=== PATIENT | female | born 1955 | race Caucasian/White ===

== ENCOUNTER 2017-09-18 07:21 | Observation (INO) | payer OTHER ==
[2017-09-18] MEDS ORDERED: NS 1,000 ML IV ONE (07:22)
--- NOTE | 2017-09-18 07:42 | CPEKG ---
Heart Rate: 71 RR Interval: 845 P-R Interval: 180 QRSD Interval: 90 QT Interval: 380 QTC Interval: 413 P Chancellor: 74 QRS Chancellor: -42 T Wave Chancellor: 59 EKG Severity - ABNORMAL ECG - EKG Impression: SINUS RHYTHM EKG Impression: LEFT ANTERIOR FASCICULAR BLOCK Electronically Signed By: Lázaro Maldonado 18-Sep-2017 08:03:57
[2017-09-18 08:03] LABS: PLATELET COUNT 211 10^3/uL (150-400)
[2017-09-18 08:13] LABS: INR 0.92 (0.83-1.16); PROTIME(PATIENT) 12.6 SEC (12.0-15.0)
--- NOTE | 2017-09-18 08:38 | PDGENHP ---
History & Physical Chief Complaint: palps History of Present Illness: symptomatic svt Relevant Physical Exam: [id number] cta ao3 Cardiorespiratory Assessment: svt for ablation
[2017-09-18] MEDS ORDERED: MIDAZOLAM 2 MG/2 ML VIAL IVP ONE (08:42)
--- NOTE | 2017-09-18 08:44 | PDANEPAE ---
ANE Past Medical History - Pulmonary History Hx Sleep Apnea: No ANE Review of Systems Review of Systems: - Exercise capacity Exercise capacity: >=4 METS ANE Patient History - Allergies Allergies/Adverse Reactions: No Known Allergies Allergy (Unverified 09/12/17 09:29) - Home Medications Home Medications: Acetaminophen [Tylenol 325mg (*)] 325 mg PO DAILY PRN 09/12/17 [Last Taken Unknown] Citalopram Hydrobromide [Celexa] 40 mg PO HS 09/12/17 [Last Taken 09/17/17] Diltiazem HCl [Cartia XT 180mg] 180 mg PO DAILY 09/12/17 [Last Taken 09/11/17] Losartan Potassium [Cozaar 50 mg (*)] 100 mg PO HS 09/12/17 [Last Taken 09/17/17 ] Mirtazapine [Remeron] 15 mg PO HS 09/12/17 [Last Taken 09/17/17] buPROPion XL [Wellbutrin Xl] 150 mg PO DAILY 09/12/17 [Last Taken 09/17/17] - NPO status NPO Status: no food or drink >8 hours - Anes Hx Anes Hx: no prior problems - Smoking Hx Smoking Status: Former smoker ANE Labs/Vital Signs - Labs Result Diagrams: 09/18/17 07:53 09/18/17 07:53 - Vital Signs Height: 168 cm Weight: 79.4 kg ANE Physical Exam - Airway Mallampati Score: Class 2 Mouth exam: normal dental/mouth exam - Pulmonary Pulmonary: no respiratory distress, no rales or rhonchi, clear to auscultation - Cardiovascular Cardiovascular: regular rate and rhythym, no murmur, rub, or gallop - ASA Status ASA Status: III ANE Anesthesia Plan Anesthesia Plan: GA w LMA
[2017-09-18] MEDS ORDERED: MIDAZOLAM 2 MG/2 ML VIAL ONE (08:48)
[2017-09-18] MEDS ORDERED: fentaNYL 250 MCG/5 ML INJ ONE (08:57)
[2017-09-18] MEDS ORDERED: LIDOCAINE 2% JELLY 5 ML TUBE ONE (08:58)
[2017-09-18] MEDS ORDERED: DEXAMETHASONE 4 MG/ML VIAL ONE (08:58)
[2017-09-18] MEDS ORDERED: PROPOFOL 200 MG/20 ML VIAL ONE (08:58)
[2017-09-18] MEDS ORDERED: ONDANSETRON 4 MG/2 ML VIAL ONE (08:58)
[2017-09-18] MEDS ORDERED: HEPARIN 10,000 UNIT/10 ML MDV (1,000 UNIT/ML) ONE (09:08)
[2017-09-18] MEDS ORDERED: ISOPROTERENOL HCL/D5W 0.2 MG/50 ML BAG IV ONE (09:09)
[2017-09-18] MEDS ORDERED: PHENYLEPHRINE HCL 100 MCG/ML SYR ONE (09:39)
[2017-09-18] MEDS ORDERED: ROCURONIUM 50 MG/5 ML VIAL ONE (09:47)
[2017-09-18] MEDS ORDERED: SUGAMMADEX SODIUM 200 MG/2 ML VIAL IVP ONE (10:19)
[2017-09-18] MEDS ORDERED: BUPIVACAINE 0.5% 30 ML SDV ONE (10:22)
[2017-09-18] MEDS ORDERED: NALOXONE HCL 0.4 MG/ML INJ IVP PRN (10:28)
[2017-09-18] MEDS ORDERED: ONDANSETRON 4 MG/2 ML VIAL IVP PRN (10:28)
[2017-09-18] MEDS ORDERED: PROMETHAZINE HCL 25 MG/ML INJ IVP PRN (10:28)
[2017-09-18] MEDS ORDERED: fentaNYL 100 MCG/2 ML INJ IVP PRN (10:28)
[2017-09-18] MEDS ORDERED: HYDROCODONE/APAP 5/325 TAB PO PRN (10:28)
[2017-09-18] MEDS ORDERED: NS 500 ML IV PRN (10:28)
[2017-09-18] MEDS ORDERED: LABETALOL HCL 5 MG/ML 20 ML MDV IVP PRN (10:28)
--- NOTE | 2017-09-18 10:34 | EPPROC ---
Electrophysiology Procedure Note: ELECTROPHYSIOLOGIC STUDY AND CATHETER MEDIATED ABLATION OF SLOW/FAST AV ALEJANDRO REENTRY TACHYCARDIA PROCEDURES PERFORMED: 77305-49 EP evaluation with RA/RV/LA pace/record, with arrhythmia induction 36755-74 EP evaluation with RA/RV pace record, insert/reposition catheter, with arrhythmia induction 93926 Intracardiac catheter ablation, SVT arrhythmogenic focus 81299 3D mapping Fluoroscopy INDICATION: Symptomatic SVT, adenosine sensitive PROCEDURE: Catheters & Anesthesia: The patient arrived in the Electrophysiology Laboratory in the fasting state. The right clavicular region, right groin, and left groin area were prepped and draped in the usual sterile manner. Anesthesiologist Dr. Safia Noriega administered general anesthesia. Appropriate non-invasive blood pressure, pulse oximetry and end-tidal CO2 monitoring was established. All catheters were placed percutaneously using the modified Seldinger technique , and advanced into position under fluoroscopic guidance. One #6 Cameroonian hexapolar non-deflectable electrode catheter was inserted into the right atrial appendage via the left femoral vein (2mm spacing; except the proximal ring which was 25cm from the tip used for unipolar recordings). One #7 Cameroonian deflectable octapolar electrode catheter was advanced to the His-bundle position via the left femoral vein (2mm spacing). One #7 Cameroonian deflectable quadrapolar catheter was advanced to the anteroseptal right ventricle via the right femoral vein. One #7 Cameroonian deflectable catheter with 10 pairs of electrodes was placed via the right femoral vein into the coronary sinus. Heparin 4000 U was given. Programmed stimulation was performed from the right atrium, right ventricle and coronary sinus (left atrium). Parahisian pacing demonstrated constant H-A interval with changing V-A intervals and stimulus-A intervals during capture and loss of capture of proximal RBB proving retrograde conduction over AV node. AVNRT was induced easily during infusion of isoproterenol 2 mcg/min. Ventricular extrastimuli delivered during tachycardia without altering antegrade His bundle activation did not advance next atrial potential, indicating that the tachycardia was not utilizing an accessory pathway for retrograde conduction. VA interval was 15 ms. Post entrainment of the tachycardia from the ventricle, there was VAHV response. Mapping of the right atrium and coronary sinus during AVNRT identified earliest atrial activation above the tendon of Kendy at a level slightly posterior to the level of the His bundle, consistent with retrograde conduction over the fast AV alejandro pathway. A #8 Cameroonian deflectable quadrapolar electrode catheter (2mm-5mm-2mm spacing) with 4 mm tip electrode and sensor for the 3D mapping Carto system was advanced to the right atrium. 3 D mapping of the inter-atrial septum and coronary sinus was performed and location of the AV node was marked. A SL2 sheath was used. RF applications were delivered to the region between the tricuspid annulus and the coronary sinus ostium, at the level of the upper edge of the coronary sinus ostium. Radiofrequency applications were also delivered along the roof of the proximal coronary sinus. Junctional rhythm occurred during all of the RF applications. Programmed stimulation was continued post ablation at baseline and during graded doses of isoproterenol upto 4mcg/min. Sustained AVNRT was not inducible. There were no echo beats. The catheters were removed. Vascular access sheaths were removed in the EP Lab after pursestring suture was applied. The patient was transferred to the cardiovascular holding area in stable condition. There were no apparent complications. Results: A. Spontaneous Intervals: Pre ablation SCL 1115 ms AH 90 ms HV 40 ms Post ablation SCL 840 ms AH 80 ms HV 40 ms B. Antegrade AV alejandro function (decremental pacing) Pre ablation FPERP 580 ms SPERP 570 ms WBB CL 560 ms Post ablation FPERP 380 ms WBB CL 370 ms C. Retrograde AV alejandro function (decremental pacing) Pre ablation FPERP 670 ms WBB CL 660 ms D. Arrhythmias: Sustained slow/fast AVNRT Cycle length 360 ms, AH interval 300 ms, MATTHEWS interval 60 ms VA interval 15 ms CONCLUSIONS 1. AV alejandro reentrant tachycardia using the slow AV alejandro pathway for antegrade conduction and the fast AV alejandro pathway for retrograde conduction. ( Slow/fast AVNRT). 2. Successful ablation of the slow AV alejandro pathway with elimination of 1:1 antegrade conduction over the slow AV alejandro pathway, all retrograde conduction over the slow AV alejandro pathway and the inducibility of AVNRT. 3. No complications. Patient Problems: Problems Problem Status Onset Supraventricular tachycardia Acute
[2017-09-18] MEDS ORDERED: ACETAMINOPHEN 325 MG TAB PO PRN (10:36)
--- NOTE | 2017-09-18 10:42 | POSTANESTH ---
Post Anesthetic Evaluation Cardiovascular Status: Normal, Stable, Similar to Pre-Op Cond Respiratory Status: Normal, Stable, Similar to Pre-op Cond. Level of Consciousness/Mental Status: Can Participate in Eval, Alert and Oriented Pain Control: Inadeq, Add Tx Required Nausea/Vomiting Control: Adequate, Prn Tx Ordered Complications Possibly Related to Anesthesia: None Noted
--- NOTE | 2017-09-18 10:43 | CPEKG ---
Heart Rate: 66 RR Interval: 909 P-R Interval: 176 QRSD Interval: 92 QT Interval: 404 QTC Interval: 424 P [place]: 69 QRS [place]: -30 T Wave [place]: 56 EKG Severity - OTHERWISE NORMAL ECG - EKG Impression: SINUS RHYTHM EKG Impression: LEFT AXIS DEVIATION Electronically Signed By: Lázaro Maldonado 18-Sep-2017 11:13:29
[2017-09-18] MEDS ORDERED: LIDOCAINE 1% 300 MG/30 ML SDV ONE (10:59)
[2017-09-18] MEDS ORDERED: LOSARTAN POTASSIUM 50 MG TAB PO SCH (21:00)
[2017-09-18] MEDS ORDERED: MIRTAZAPINE 15 MG TAB PO SCH (21:00)
[2017-09-18] MEDS ORDERED: CITALOPRAM 20 MG TAB PO SCH (21:00)
[2017-09-19 04:41] LABS: PLATELET COUNT 205 10^3/uL (150-400)
[2017-09-19 05:27] LABS: CREATINE KINASE 55 IU/L (0-156)
[2017-09-19 07:21] VITALS: BP 152/89; PULSE 68; RESP 16; TEMP 97.9; O2SAT 91
[2017-09-19] MEDS ORDERED: ASPIRIN 81 MG CHEWABLE TAB PO SCH (09:00)
[2017-09-19] MEDS ORDERED: buPROPion XL 150 MG TAB PO SCH (09:00)
--- NOTE | 2017-09-19 09:35 | CPEKG ---
Heart Rate: 65 RR Interval: 923 P-R Interval: 180 QRSD Interval: 92 QT Interval: 400 QTC Interval: 416 P [place]: 54 QRS [place]: -22 T Wave [place]: 49 EKG Severity - OTHERWISE NORMAL ECG - EKG Impression: SINUS RHYTHM EKG Impression: BORDERLINE LEFT AXIS DEVIATION Electronically Signed By: Lázaro Maldonado 19-Sep-2017 10:52:17
--- NOTE | 2017-09-19 10:00 | ECHO ---
[email or web address] [address] [address] Main: [phone] Fax: Transthoracic Echocardiogram Name: FANNY STALEY MR#: [id number] Study Date: 09/19/2017 Study Time: 07:28 AM Date of : 1955 Age: 62 year(s) Height: 167.6 cm (66 in.) Weight: 79.38 kg (175 lb.) BSA: 1.89 m2 Gender: Female Examination: Echo Indication: F/U post EP study Image Quality: Contrast: Requested by: Lázaro Maldonado BP: / Heart Rate: Rhythm: Indication: F/U post EP study Procedure Staff Tip Banding Machine Operator: Maryanne Floyd RDCS Reading Physician: Roni Ramirez Requesting Provider: Conclusions: Normal study Measurements: Chambers Valvular Assessment AV/MV Valvular Assessment TV/PV Normal Normal Normal Name Value Range Name Value Range Name Value Range Ao Nadira (MM): 3.0 cm (2.2 cm-3.7 AV Vmax: 0.84 m/s (1 m/s-1.7 cm) m/s) IVSd (2D): 0.8 cm (0.6 cm-1.1 AV maxP mmHg ( - ) cm) MV E Vmax: 0.61 m/s ( - ) LVDd (2D): 4.7 cm (3.9 cm-5.3 MV A Vmax: 0.74 m/s ( - ) cm) MV E/A: 0.82 ( - ) LVDs (2D): 3.3 cm (2.1 cm-4 cm) LVPWd (2D): 0.7 cm ( - ) LVEF (MOD4): 63 % (>=55 %) EF Range: 60-65 % Continued Measurements: Chambers Valvular Assessment AV/MV Name Value Name Value LADs: 3.0 cm MV E/E' Septal: 10.80 LADs Lon.3 cm MV E/E' Lateral: 9.40 LA Area: 14.7 cm2 Additional Vessels Name Value Patient: FANNY STALEY Study Date: 09/19/2017 Page 1 of 2 07:28 AM Ao Ascendin.4 cm Findings: Left Ventricle: Normal size left ventricle. No LV hypertrophy. Normal global systolic LV function. The ejection fraction is estimated to be 60-65 %. No regional wall motion abnormality. Right Ventricle: Normal size right ventricle. Left Atrium: The left atrium is normal in size. Right Atrium: The right atrium is normal in size. Mitral Valve: The mitral valve is normal in appearance and function. Trivial to mild mitral regurgitation. Aortic Valve: The aortic valve is normal in appearance and function. Tricuspid Valve: The tricuspid valve is normal in appearance and function. Trivial tricuspid valve regurgitation. Pulmonic Valve: Pulmonary valve not well visualized. Aorta: The aorta is normal. Pericardium: No pericardial effusion. There is pericardial fat. (No Signature Object) Patient: FANNY STALEY Study Date: 09/19/2017 Page 2 of 2 07:28 AM D:_[id number]
--- NOTE | 2017-09-19 12:00 | ASDISCHSUM ---
Discharge Information Plan Status: Medically Cleared to Leave: Discharge Date:09/19/2017 11:50 AM CM D/C Disposition: ADT D/C Disposition:Home, Routine, Self-Care Projected Discharge Date:09/19/2017 11:50 AM Transportation at D/C: Discharge Delay Reason: Follow-Up Date:09/19/2017 11:50 AM Discharge Slot: Final Diagnosis: Placement Information Patient Contact Information Contact Name:PETE Relationship: Address:[address] City:[place] Alternate Phone: State/Zip Code:[place] [address] Email: Financial Information Financial Class:HMO and PPO Plans Primary Plan Desc:[employer]/POS PPO Primary Plan Number:[id number] Secondary Plan Desc: Secondary Plan Number: Assessment Information Intervention Information
--- NOTE | 2017-09-19 19:03 | GDS ---
[f rep st] DISCHARGE SUMMARY DISCHARGE DIAGNOSES: 1. Atrioventricular laila reentrant tachycardia. 2. Hypertension. HOSPITAL COURSE: For detailed H and P, please see prior dictation. Briefly, the patient is a 62-year-old female with a history of palpitations which were present for th e past 2 years. Recently, she had palpitations. Presented to [facility] where she was found to be in SVT. She received adenosine and converted to normal sinus rhythm. Her rate was 146 beats per minute. She was on diltiazem, but did not want to be on medical therapy long-term. Theref ore, opted to proceed with an EP study and ablation. This was performed by Dr. Lázaro Maldonado on 018. She was found to have an AVNRT, which was ablated with good results. She was monitored on tele metry and remained in normal sinus rhythm without any arrhythmias. Her EKG the day of discharge reve aled normal sinus rhythm. She denies any chest discomfort or palpitations. Her troponin peaked at 0 .495. An echocardiogram revealed preserved LV function without any evidence of pericardial effusion. PHYSICAL EXAMINATION: GENERAL: Patient appears in no acute distress. VITAL SIGNS: Blood pressure 152/89, heart rate 68, oxygen saturation of 91% on room air. Afebrile. LUNGS: Clear to auscultatio n. No wheezes, rhonchi, or crackles auscultated. CARDIAC: Regular rate and rhythm without any murm urs, rubs or gallops appreciated. EXTREMITIES: Bilateral groins where access was obtained for the E P study and ablation are clean, intact, without any evidence of infection or hematoma. DISCHARGE MEDICATIONS: Aspirin 81 mg daily. Remeron 15 mg at bedtime. Losartan 100 mg at bedtime. Celexa 40 mg at bedtime. Wellbutrin 150 mg daily. Tylenol p.r.n. PLAN: The patient is currently stable and ready for discharge home. She has been given groin precau tions. She will follow up with Dr. Lázaro Maldonado on 10/18/2017, at 1:45 as scheduled. /[id number]/MODL
== END 2017-09-19 11:50 | disposition home or self-care (01) ==
LOC: FCATH 07:21 → F2W 10:34
PROVIDERS: ADMIT Internal Medicine Cardiovascular Disease; ATTEND Internal Medicine Cardiovascular Disease
PROC: 02K83ZZ Map Conduction Mechanism, Percutaneous Approach (ICD-10-PCS; principal; 2017-09-18)
PROC: 02563ZZ Destruction of Right Atrium, Percutaneous Approach (ICD-10-PCS; principal; 2017-09-18)
PROC: 5A1213Z Performance of Cardiac Pacing, Intermittent (ICD-10-PCS; principal; 2017-09-18)
PROC: 4A023FZ Measurement of Cardiac Rhythm, Percutaneous Approach (ICD-10-PCS; principal; 2017-09-18)
PROC: 025K3ZZ Destruction of Right Ventricle, Percutaneous Approach (ICD-10-PCS; principal; 2017-09-18)
PROC: 02573ZZ Destruction of Left Atrium, Percutaneous Approach (ICD-10-PCS; principal; 2017-09-18)
DX: I47.1 Supraventricular tachycardia (principal); I10 Essential (primary) hypertension
CPT/HCPCS: 93005; 93306; 93613; 93621; 93623; 93653; C1730; C1732; C1893; G0378; C1731; J1100; J1644; J2250; J2370; J2405; J2704; J3010